=== PATIENT | female | born 1980 | race Two or more races ===

== ENCOUNTER 2023-01-03 00:26 | Emergency (ER) | payer OTHER ==
[~2023-01-03] VITALS: Ht 152.4 cm; Wt 65.8 kg
[2023-01-03] MEDS ORDERED: MOTION SICKNESS25 M1 PO (04:51)
== END 2023-01-03 04:54 ==
LOC: ER 00:26
DX: R42 Dizziness and giddiness (principal)

== ENCOUNTER 2023-09-10 07:55 | Outpatient (CLI) | payer OTHER ==
[~2023-09-10 07:55] MED LIST: MOTION SICKNESS25 M1 PO
[2023-09-10 09:13] LABS: HEMATOCRIT 37.6 % (36.0-45.00); HEMOGLOBIN 13.2 g/dL (12.0-15.00); MEAN CELL VOLUME 88.8 fL (80.00-100.00); MEAN CORPUSCULAR HEMOGLOBIN 31.1 pg (27.00-32.0); PLATELET COUNT 303 K/uL (150-450); RED BLOOD COUNT 4.24 M/uL (4.00-6.00); RED CELL DISTRIBUTION WIDTH 13.2 % (11.5-14.5)
[2023-09-10 09:58] LABS: ALBUMIN 3.7 gm/dL (3.4-5.0); BILIRUBIN TOTAL 0.82 mg/dL (0.3-1.2); CALCIUM 9.1 mg/dL (8.5-10.1); CREATININE SERUM 0.78 mg/dL (0.55-1.02); GFR 80.23; GLOBULINA 3.3 G/DL (2.4-3.5); POTASSIUM 3.72 mEq/L (3.5-5.1); TSH 4.31 uIU/mL (0.358-3.74)
== END 2023-09-10 07:56 | disposition home or self-care (01) ==
LOC: LAB 07:55
PROVIDERS: ATTEND Internal Medicine Gastroenterology
DX: R10.13 Epigastric pain (principal); Z13.29 Encounter for screening for other suspected endocrine disorder

== ENCOUNTER 2023-09-10 08:12 | Outpatient (CLI) | payer OTHER | END 2023-09-10 08:17 | disposition home or self-care (01) | LOC: RAD 08:12 | PROVIDERS: ATTEND Orthopaedic Surgery Hand Surgery | DX: M19.041 Primary osteoarthritis, right hand (principal); M19.042 Primary osteoarthritis, left hand ==

== ENCOUNTER 2023-09-26 06:41 | Outpatient (CLI) | payer OTHER | END 2023-09-26 06:42 | disposition home or self-care (01) | LOC: LAB 06:41 | PROVIDERS: ATTEND Internal Medicine Gastroenterology | DX: J20.9 Acute bronchitis, unspecified (principal); R05.9 Cough, unspecified ==

== ENCOUNTER 2023-09-26 07:06 | Outpatient (CLI) | payer OTHER | END 2023-09-26 07:12 | disposition home or self-care (01) | LOC: TOM 07:06 | PROVIDERS: ATTEND Internal Medicine Gastroenterology | DX: R10.32 Left lower quadrant pain (principal) ==

== ENCOUNTER 2023-10-29 11:59 | Emergency (ER) | payer OTHER ==
[~2023-10-29] VITALS: Ht 152.4 cm; Wt 66.7 kg
== END 2023-10-29 16:36 | disposition home or self-care (01) ==
LOC: ER 11:59
DX: J06.9 Acute upper respiratory infection, unspecified (principal)

== ENCOUNTER 2024-06-22 07:31 | Outpatient (CLI) | payer OTHER | END 2024-06-22 07:38 | disposition home or self-care (01) | LOC: SONOGRAMA 07:31 | PROVIDERS: ATTEND General Practice | DX: E06.9 Thyroiditis, unspecified (principal) ==

== ENCOUNTER 2024-08-03 07:31 | Outpatient (CLI) | payer OTHER | END 2024-08-03 07:41 | disposition home or self-care (01) | LOC: LAB 07:31 | PROVIDERS: ATTEND General Practice | DX: E06.3 Autoimmune thyroiditis (principal) ==

== ENCOUNTER 2024-08-31 07:40 | Outpatient (CLI) | payer OTHER | END 2024-08-31 07:45 | disposition home or self-care (01) | LOC: MRI 07:40 | PROVIDERS: ATTEND General Practice | DX: M25.562 Pain in left knee (principal) | CPT/HCPCS: 73721 ==

== ENCOUNTER 2025-02-15 22:16 | Emergency (ER) | payer OTHER ==
[~2025-02-15] VITALS: Ht 152.4 cm; Wt 54.4 kg
[2025-02-16] MEDS ORDERED: ORPHENADRINE CITRATE 30 MG/ML AMPUL IM STA (00:44)
[2025-02-16] MEDS ORDERED: KETOROLAC TROMETHAMINE 60 MG VIAL IM STA (00:44)
[2025-02-16] MEDS ORDERED: DEXAMETHASONE SODIUM PHOSPHATE 4 MG/ML VIAL IM STA (00:44)
[2025-02-16] MEDS ORDERED: KETOROLAC TROMETHAMINE 60 MG VIAL IM ONE (00:50)
[2025-02-16] MEDS ORDERED: DEXAMETHASONE SODIUM PHOSPHATE 4 MG/ML VIAL ONE (00:50)
[2025-02-16] MEDS ORDERED: ORPHENADRINE CITRATE 30 MG/ML AMPUL ONE (00:50)
== END 2025-02-16 03:03 | disposition home or self-care (01) ==
LOC: ER 22:17
DX: M54.50 Low back pain, unspecified (principal); Z88.5 Allergy status to narcotic agent

== ENCOUNTER 2025-03-04 07:20 | Outpatient (CLI) | payer OTHER ==
[2025-03-04 08:28] LABS: HEMATOCRIT 41.4 % (36.0-45.00); HEMOGLOBIN 14.3 g/dL (12.0-15.00); MEAN CELL VOLUME 91.7 fL (80.00-100.00); MEAN CORPUSCULAR HEMOGLOBIN 31.6 pg (27.00-32.0); MEAN CORPUSCULAR HGB CONC 34.4 g/dl (32.0-36.0); PLATELET COUNT 270 K/uL (150-450); RED BLOOD COUNT 4.52 M/uL (4.00-6.00); RED CELL DISTRIBUTION WIDTH 12.8 % (11.5-14.5)
[2025-03-04 09:49] LABS: FERRITIN 33.4 NG/ML (8-252); TSH 4.2 uIU/mL (0.358-3.74)
[2025-03-04 12:56] LABS: FOLIC ACID 14.73 ng/ml (4.78-20); VITAMIN D3 25 HYDROXY 47.31 ng/ml (30-120)
== END 2025-03-04 07:24 | disposition home or self-care (01) ==
LOC: LAB 07:20
PROVIDERS: ATTEND Emergency Medicine Pediatric Emergency Medicine
DX: L64.8 Other androgenic alopecia (principal)

== ENCOUNTER 2025-03-04 07:48 | Outpatient (CLI) | payer OTHER | END 2025-03-04 07:49 | disposition home or self-care (01) | LOC: SONOGRAMA 07:48 | DX: E06.9 Thyroiditis, unspecified (principal) ==

== ENCOUNTER 2025-03-10 20:10 | Emergency (ER) | payer OTHER ==
[~2025-03-10] VITALS: Ht 152.4 cm; Wt 55.8 kg
[2025-03-10] MEDS ORDERED: ACETAMINOPHEN 500 MG GEL..CAP PO ONE ×2 (20:45→21:30)
[2025-03-10] MEDS ORDERED: GUAIFEN/DEXTROMETHORPHAN/PE 10 ML BLIST.PACK PO STA (20:56)
[2025-03-10 22:12] LABS: HEMATOCRIT 38.8 % (36.0-45.00); HEMOGLOBIN 13.4 g/dL (12.0-15.00); MEAN CELL VOLUME 90.3 fL (80.00-100.00); MEAN CORPUSCULAR HEMOGLOBIN 31.3 pg (27.00-32.0); MEAN CORPUSCULAR HGB CONC 34.6 g/dl (32.0-36.0); PLATELET COUNT 222 K/uL (150-450); RED CELL DISTRIBUTION WIDTH 13.1 % (11.5-14.5)
[2025-03-10 23:42] LABS: COVID-19 AG NEGATIVE (NEGATIVE)
[2025-03-10 23:51] LABS: INFLUENZA A AG NEGATIVE (NEGATIVE)
[2025-03-11] MEDS ORDERED: ZYNCOF 20-400120 ML PO (01:51)
[2025-03-11] MEDS ORDERED: PHENAGIL TABLE1 EACH PO (01:51)
== END 2025-03-11 02:24 ==
LOC: ER 20:11
DX: B34.9 Viral infection, unspecified (principal); Z20.822 Contact with and (suspected) exposure to COVID-19; Z88.8 Allergy status to other drugs, medicaments and biological substances; E16.2 Hypoglycemia, unspecified

== ENCOUNTER 2025-03-12 08:00 | Outpatient (CLI) | payer OTHER ==
[~2025-03-12 08:00] MED LIST changes: +PHENAGIL TABLE1 EACH PO; +ZYNCOF 20-400120 ML PO
== END 2025-03-12 08:01 | disposition home or self-care (01) ==
LOC: LAB 08:00
PROVIDERS: ATTEND Emergency Medicine Pediatric Emergency Medicine
DX: J02.0 Streptococcal pharyngitis (principal)

== ENCOUNTER → 2025-08-08 07:27 | Outpatient (CLI) | payer OTHER ==
[2025-08-08 09:06] LABS: T4 FREE 1.35 NG/ML (0.76-1.46); TSH 1.91 uIU/mL (0.358-3.74)
== END | disposition home or self-care (01) ==
LOC: LAB 07:27
DX: E03.8 Other specified hypothyroidism (principal)

== ENCOUNTER 2025-08-08 08:24 | Outpatient (CLI) | payer OTHER | END 2025-08-08 08:36 | disposition home or self-care (01) | LOC: MAMO-SONO 08:24 | DX: N83.00 Follicular cyst of ovary, unspecified side (principal); Z90.710 Acquired absence of both cervix and uterus; N64.51 Induration of breast; Z12.31 Encounter for screening mammogram for malignant neoplasm of breast; R10.30 Lower abdominal pain, unspecified; K59.04 Chronic idiopathic constipation ==

== ENCOUNTER → 2025-09-23 07:29 | Outpatient (CLI) | payer OTHER ==
[2025-09-23 08:38] LABS: BASO % 0.3 % (0.1-1.2); EOS # 0.09 (0.04-0.54); EOS % 1.4 % (0.7-7.0); LYMPH # 1.91 (1.18-3.74); LYMPH % 30.2 % (19.3-53.1); MEAN PLATELET VOLUME 10.50 fl (9.4-12.4); MONO # 0.50 (0.24-0.82); MONO % 7.9 % (4.7-12.5); NEUT # 3.79 (1.56-6.13); NEUT % 59.9 % (34.0-71.1); RED CELL DISTRIBUTION WIDTH 12.0 % (11.6-14.4)
[2025-09-23 09:02] LABS: ERYTHROCYTE SEDIMENTATION RATE 6 mm/hr (0-20)
[2025-09-23 09:05] LABS: INR 0.99
[2025-09-23 09:13] LABS: T3 UPTAKE 34 % (30-39); T4 TOTAL 9.55 UG/DL (4.8-13.9); TSH 1.230 uIU/mL (0.358-3.74)
== END | disposition home or self-care (01) ==
LOC: LAB 07:29
PROVIDERS: ATTEND Pediatrics
DX: E03.9 Hypothyroidism, unspecified (principal); M79.81 Nontraumatic hematoma of soft tissue